=== PATIENT | male | born 2000 | race Two or more races ===

== ENCOUNTER 2022-06-28 20:22 | Emergency (ER) | payer MEDICAID, OTHER ==
[~2022-06-28] VITALS: Ht 170.2 cm; Wt 58.9 kg
[2022-06-28 20:49] VITALS: BP 121/64
== END 2022-06-29 05:48 | disposition left against medical advice (07) ==
LOC: ER 20:22
DX: T22.112A Burn of first degree of left forearm, initial encounter (principal); Z53.21 Procedure and treatment not carried out due to patient leaving prior to being seen by health care provider; X08.8XXA Exposure to other specified smoke, fire and flames, initial encounter; Y93.89 Activity, other specified; Y92.89 Other specified places as the place of occurrence of the external cause; Y99.8 Other external cause status